=== PATIENT | male | born 1995 | race Caucasian/White ===

== ENCOUNTER 2022-01-18 14:21 | Emergency (ER) | payer SELFPAY ==
[2022-01-18 14:22] VITALS: BP 145/112; PULSE 102; RESP 18; TEMP 36.3; O2SAT 97; BMI 40.6
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
[2022-01-18] MEDS: Ondansetron ODT 4 MG Tablet PO (14:51)
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
--- NOTE | 2022-01-18 15:30 | RAD_ITS ---
STUDY: X-RAY - LEFT KNEE REASON FOR EXAM: Male, 26 years old. Pain TECHNIQUE: 4 view(s) of the knee. COMPARISON: None. FINDINGS: Normal visualized distal femur. Normal visualized proximal tibia and fibula. Normal proximal tibiofibular articulation. Normal medial femorotibial compartment. Normal lateral femorotibial compartment. Normal patellofemoral articulation. Soft tissue swelling RAD/Knee 4 or More Views IMPRESSION: Soft tissue swelling. Electronically Signed: Edilberto Luis MD at 15:49 EDT ,
[2022-01-18 16:12] VITALS: RESP 16
== END 2022-01-18 16:14 | disposition home or self-care (01) ==
PROVIDERS: Emergency Provider Emergency Medicine; PCP Nurse Practitioner; Visit Provider Emergency Medicine
DX: S22.31XA Fracture of one rib, right side, initial encounter for closed fracture (principal); S09.90XA Unspecified injury of head, initial encounter; S80.02XA Contusion of left knee, initial encounter; S80.01XA Contusion of right knee, initial encounter; S16.1XXA Strain of muscle, fascia and tendon at neck level, initial encounter; Z85.830 Personal history of malignant neoplasm of bone; Z87.891 Personal history of nicotine dependence; Z90.89 Acquired absence of other organs; V43.62XA Car passenger injured in collision with other type car in traffic accident, initial encounter
CPT/HCPCS: 70450; 71101; 72125; 73564; 99283

== ENCOUNTER → 2024-05-15 | Outpatient (CLI) | payer OTHER, SELFPAY ==
--- NOTE | 2024-05-15 15:20 | RAD_ITS ---
PROCEDURE: L/S SPINE COMP/W BENDING VIEWS REASON FOR EXAM: Low back pain. TECHNIQUE: Standing AP, oblique, and lateral view(s) Of the lumbar spine with flexion and extension views. COMPARISON: None. FINDINGS: 6 lumbar type vertebral levels are noted. Confirmation of level should be performed prior to any justin gical procedure. There is subtle retrolisthesis of L4 on L5 seen on the extension view. This does normalize on the lateral and flexion views. Vertebral body heights are maintained. No acute fractures or dislocations are identified. There is mild degen erative disc and endplate changes seen at the L3-4 and L5- L6 levels. Facet arthrosis mostly involving the lower lumbar spine. No pars defects are noted. Anatomic alignment of the bilateral SI joints. [id number] amounts of fecal retention. RAD/L/S Spine Comp/w Bending Views IMPRESSION: 1. 6 lumbar-type vertebral levels. Confirmation of level should be performed p rior to any surgical procedure. 2. No acute fractures or dislocations are identified. 3. Subtle retrolisthesis of L4 on L5 seen on the extension view, which normaliz es on the lateral and flexion views. Mild spondylotic changes, as detailed above. Reading [facility]
== END | disposition home or self-care (01) ==
PROVIDERS: PCP Nurse Practitioner; Referring Provider Nurse Practitioner; Visit Provider Nurse Practitioner
DX: M54.42 Lumbago with sciatica, left side (principal)
CPT/HCPCS: 72114

== ENCOUNTER 2024-05-22 15:17 | Outpatient (RCR) | payer OTHER, SELFPAY ==
--- NOTE | 2024-05-22 16:29 | HP.PTEVAL_ITS ---
Patient's Visit Information Visit Information Visit Information: GEOR[place]IA SHAH is a 28 year old M referred to Physical Therapy by HEIKE Morse with a diagnosis of L/S radiculopathy. Date of Evaluation: 05/22/24 Physical Therapist: Gabriel Damon, DPT, OCS, CSCS Visit Plan Frequency: 2x /Week Duration: 4-6 Weeks Plan: 2x/week for 3-6 weeks... IE HEP: PPU, limit sitting , sit with towel roll, avoid fw bending, HO given, ducate on bracing and benefits of tens. treat with progressive forces on Lumbar extension, PA mobs lumbar L345 and thoracic. rollout and stretch B HS to HEP. core strength to I. May use TENS and ice as needed. Subjective Subjective: LBP and needs MRI and needs therapy first. LBP is present for 10+ years on and off. Chiropractor usually helps. This episode is for 3 months adn chiro did not help. Seen pain management and thinks it is a disc. Nothing happened 3 months ago. Pain is L LB and down leg posteriorly, leg> back. Stuck in bed a week ago. Went to doctor and gave lidocaine shot and pain shot and it helped get him funcitonal. Sleep is no problem, rolling in bed and moving in bed can hurt. 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 Lots of riding and sitting and has to rig machine and heavy lifting. Sitting alot 45 min at a time. Sitting irritates. Hobbies: hunting and fishing. 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 Had to cut b ack on all those things recently. Basic ADLs: was not funcitoning mobility alejandro a week ago. . this week is funcitonal. Funcitonal and back to work last but was off mMonday adn Tuesday and Tuesday. HEP: SKC, did not help and made him worse. Pain L LB and pain: Pain Intensity (Out of 10): 5 Pain Intensity Range: 4 and 10 Comment: bedridden a week ago for no reasson. Objective Objective: Walks into PT I, trasnfers I chair and bed, slowly in bed and hesitant but able. + R SLR, + R slump with R LE tightness and pain. LB AROM ext max limited and pain in R LE, very little movement L345 segmentally., flexion is mod limitations., SB is full B without pain. HS max tight L and unable R due to + SLR. reflexes 1/3 patella and achilles B. Sensation LE WNL to gross light touch B LE. strength is 5/5 LE but hard on r quad due to SLR+, no myotomal problems. core strength 4 in abs and extension. repeated PPU seems to increase motion and NE on pain and better standing exxtension. Posture is sacral sitting until cued and flexed Lumbar spine. Balance/Special Test Scores Oswestry Low Back Score: 11 Goals Goal 1:: Pat feel LB and leg pain 90% better and 1/10 at worst in LB only. Goal Time Frame: 4-6 Weeks Goal 2:: I appropriate HEP to limit future problems Goal Time Frame: 4-6 Weeks Goal 3:: Roll in bed without hesitation Goal Time Frame: 4-6 Weeks Goal 4:: back oswestry score 4 or better Goal Time Frame: 4-6 Weeks Rehabilitation Potential Physical Therapy Diagnosis: R leg and LB pain limiting comfortable function and mobility Rehabilitation Potential: Good Anticipated Interventions Patient/Client Instruction: Educate patient on: Condition and Plan of Care For the Purpose of:: To decrease pain, To increase ROM, To improve nutrient delivery to tissue, To improve muscle performance and motor function, To increase tolerance to activity/condition/position and To improve ability of physical actions for home/community/work/leisure Therapeutic Exercise to Include: Strength training, Postural training, Flexibilty training, Passive ROM, Active ROM and Dynamic Lumbar Stabilization For the Purpose of:: To decrease pain, To increase ROM, To improve nutrient delivery to tissue, To improve muscle performance and motor function and To improve gait and locomotor functions Manual Therapy Techniques to Include: Mobilization, Passive ROM and Soft tissue mobilization For the Purpose of:: To decrease pain, To increase ROM, To improve nutrient delivery to tissue, To improve muscle performance and motor function, To increase tolerance to activity/condition/position, To improve ability of physical actions for home/community/work/leisure and To improve gait and locomotor functions Cryotherapy (ice pack, ice massage): Yes For the Purpose of:: To decrease pain and To increase ROM Text: Thank you for the opportunity to evaluate your patient. For Medicare and Medicare HMO plans, please review the plan of care and approve it. It will need to be FAXED BACK to us at [phone] for Medicare purposes. For Medicare only, by signing this I certify the plan of care. Please let me know if there are questions or concerns regarding this plan of care. Physician Signature: Date:
--- NOTE | 2024-07-24 15:18 | HP.PT.NRP ---
Patient Information Patient Information: [place] SHAH was seen in my office for initial evaluation on 05/22/24. The following Plan of Care was established for this patient: POC Established Initial Frequency: 2x /Week Initial Duration: 4-6 Weeks Anticipated Interventions Patient/Client Instruction: Educate patient on: Condition and Plan of Care For the Purpose of:: To decrease pain, To increase ROM, To improve nutrient delivery to tissue, To improve muscle performance and motor function, To increase tolerance to activity/condition/position and To improve ability of physical actions for home/community/work/leisure Therapeutic Exercise to Include: Strength training, Postural training, Flexibilty training, Passive ROM, Active ROM and Dynamic Lumbar Stabilization For the Purpose of:: To decrease pain, To increase ROM, To improve nutrient delivery to tissue, To improve muscle performance and motor function and To improve gait and locomotor functions Manual Therapy Techniques to Include: Mobilization, Passive ROM and Soft tissue mobilization For the Purpose of:: To decrease pain, To increase ROM, To improve nutrient delivery to tissue, To improve muscle performance and motor function, To increase tolerance to activity/condition/position, To improve ability of physical actions for home/community/work/leisure and To improve gait and locomotor functions Cryotherapy (ice pack, ice massage): Yes For the Purpose of:: To decrease pain and To increase ROM Last Seen Last Seen: This patient was last seen in our office 05/22/24. Pertinent comments regarding their Physical therapy will appear below: Pt seen for IE and then cancelled and no showed for remaining POC. At this point, it has been over two months and I will discontinue from my care. At this point I will be discontinuing this patient from physical therapy. I would be happy to see this patient again in the future if found appropriate by the physician. Thank you! Gabriel Damon, DPT, OCS, CSCS Balance/Gait/Functional tests Balance/Special Test Scores Oswestry Low Back Score: 11
== END 2024-05-22 19:00 | disposition home or self-care (01) ==
LOC: PT 15:17
PROVIDERS: PCP Nurse Practitioner; Visit Provider Student in an Organized Health Care Education/Training Program
DX: M54.16 Radiculopathy, lumbar region (principal)
CPT/HCPCS: 97110; 97162

== ENCOUNTER → 2024-06-08 | Outpatient (CLI) | payer OTHER, SELFPAY ==
[2024-06-10 06:38] LABS: Testosterone, Serum 4226 217 ng/dL (264-916)
== END | disposition home or self-care (01) ==
PROVIDERS: PCP Nurse Practitioner; Referring Provider Nurse Practitioner; Visit Provider Nurse Practitioner
DX: R79.89 Other specified abnormal findings of blood chemistry (principal); R53.83 Other fatigue
CPT/HCPCS: 84403; 84443

== ENCOUNTER → 2024-06-08 | Outpatient (CLI) | payer OTHER, SELFPAY ==
--- NOTE | 2024-06-08 07:14 | MRI_ITS ---
PROCEDURE: MRI lumbar spine without IV contrast REASON FOR EXAM: Pain, radiculopathy TECHNIQUE: Multisequence multiplanar MR images of the lumbar spine were obtained without the administration of intravenous contrast. Imaging sequences were performed and best displaced suspected pathology. COMPARISON: 05/15/2024 FINDINGS: Transitional lumbosacral anatomy with lumbarization of S1 and a fully formed disc at S1-S2. Vertebral body heights are within normal limits. Negative for acute fracture or marrow replacement. Alignment is preserved. Conus medullaris is intact and terminates at L1. Mild paraspinal muscle atrophy without mass. L1-2: No focal disc abnormality, spinal stenosis or foraminal narrowing. L2-3: No focal disc abnormality, spinal stenosis or foraminal narrowing. L3-4: Tiny right central disc protrusion. Mild bilateral facet arthrosis. No significant spinal stenosis or foraminal narrowing. L4-5: Broad-based left central disc extrusion measuring 4 x 14 mm (AP and TV dimensions) with 5 mm of caudal extrusion. Mild bilateral facet arthrosis. Mild spinal stenosis and moderate narrowing of the left lateral recess. Mild right and mild/moderate left foraminal narrowing. L5-S1: Large left central disc extrusion measuring 9 x 15 mm (AP and TV dimensions) width 3 mm of cranial and 4 mm of caudal migration. Severe spinal stenosis including severe narrowing of the left lateral recess. Mild right and moderate left foraminal narrowing. Mild bilateral facet arthrosis. MRI/Spine Lumbar (Routine) IMPRESSION: 1. Transitional lumbosacral anatomy which requires careful correlation with pino tebral levels if surgery is considered. Lumbarization of S1 with a fully formed disc at S1-S2. 2. Large left central disc extrusion at L5-S1 resulting in severe spinal stenos is and severe left lateral recess stenosis. 3. Small left central disc extrusion at L4-5 resulting in mild spinal stenosis and narrowing of the left lateral recess. 4. Ooin-vp-ornqkfly left foraminal narrowing from L4 through S1. Reading Location: [facility]
== END | disposition home or self-care (01) ==
LOC: MRI 07:05
PROVIDERS: PCP Nurse Practitioner; Referring Provider Student in an Organized Health Care Education/Training Program; Visit Provider Student in an Organized Health Care Education/Training Program
DX: M54.16 Radiculopathy, lumbar region (principal)
CPT/HCPCS: 72148

== ENCOUNTER → 2024-06-29 | Outpatient (CLI) | payer OTHER, SELFPAY ==
--- NOTE | 2024-06-29 18:58 | CT_ITS ---
PROCEDURE: SPINE LUMBAR WITHOUT CONTRAST REASON FOR EXAM: PAIN TECHNIQUE: Lumbar spine CT without contrast. COMPARISON: None. FINDINGS: Vertebrae: Normal lumbar vertebral body heights. No evidence of fracture. No spondylolysis. Alignment: No spondylolisthesis. L1-2: Unremarkable. L2-3: Unremarkable. L3-4: Unremarkable. L4-5: Unremarkable. L5-S1: Unremarkable. Sacrum: Visualized upper sacrum and SI joints are unremarkable. Visualized retroperitoneal structures are unremarkable. CT/Spine Lumbar without Contrast IMPRESSION: No acute fracture or traumatic malalignment. One or more dose reduction techniques were used (e.g., Automated exposure contr ol, adjustment of the mA and/or kV according to patient size, use of iterative reconstruction technique). Reading Location: [facility]
== END | disposition home or self-care (01) ==
PROVIDERS: PCP Nurse Practitioner; Referring Provider Student in an Organized Health Care Education/Training Program; Visit Provider Student in an Organized Health Care Education/Training Program
DX: M51.26 Other intervertebral disc displacement, lumbar region (principal)
CPT/HCPCS: 72131

== ENCOUNTER 2024-07-09 09:44 | Day surgery (SDC) | payer OTHER, SELFPAY ==
--- NOTE | 2024-07-05 08:42 | EKG12_ITS ---
Test Reason : PREOP Blood Pressure : */* mmHG Vent. Rate : 65 BPM Atrial Rate : 65 BPM P-R Int : 154 ms QRS Dur : 108 ms QT Int : 406 ms P-R-T Axes : 14 39 25 degrees QTcB Int : 422 ms Normal sinus rhythm Normal ECG Confirmed by MARCE VILLA, NINA ([id number]), marketing editor RAFAEL DAVIDSON ([id number]) on 07/06/2024 5:48:57 AM Referred By: Geraldo Robles Confirmed By: NINA ZHENG MD
[2024-07-05 09:31] LABS: Absolute Lymphocyte Count 1.41 X10^3/uL (0.83-4.51); Absolute Neutrophil Count 5.1 X10^3/uL (2.0-7.7); Basophil# 0.04 X10^3/uL; Basophil% 0.5 % (0-1); Eosinophils% 1.4 % (0-5); Hematocrit 44.5 % (40-54); Hemoglobin 15.3 g/dL (13.0-16.5); Lymphocyte # 1.41 X10^3/ul (0.83-4.51); Lymphocyte % 19.3 % (19-41); Mean Corp Hgb Conc 34.4 g/dL (32-36); Mean Corpuscular Hgb 31.8 pg (27.0-32.0); Mean Corpuscular Volume 92.5 fL (80-94); Mean Platelet Vol. 9.9 fl (6.2-12.0); Monocyte# 0.56 X10^3/uL; Monocyte% 7.7 % (0-10); NRBC Flagged by Analyzer 0 % (0-5); Neutrophil # 5.14 X10^3/uL (2.7-7.7); Neutrophil % 70.6 % (47-70); Platelet Count 240 K/mm3 (150-450); RBC Distribution Width CV 12.2 % (11.6-14.6); RBC Distribution Width SD 41.9 fl (35.1-43.9); Red Blood Count 4.81 M/mm3 (4.6-6.2); White Blood Count 7.3 K/mm3 (4.4-11.0)
[2024-07-05 10:26] LABS: Magnesium 2.1 mg/dL (1.5-2.2)
[2024-07-05 10:32] LABS: Hepatitis B Surface Antibody Nonreactive; Hepatitis C Antibody Nonreactive (Nonreactive)
[2024-07-05 10:44] LABS: Anion Gap 13 (5-15); BUN 15 mg/dL (4-19); BUN/Creat Ratio 17.9 RATIO (10-20); Calcium,Total 9.3 mg/dL (7.6-11.0); Carbon Dioxide 25.4 mmol/L (21.0-32.0); Chloride 102 mmol/L (98-108); Creatinine, Serum 0.82 mg/dL (0.70-1.20); EST Glomerular Filtration Rate 122 (>60); Glucose 106 mg/dL (70-99); HIV Nonreactive (Nonreactive); Potassium 4.1 mmol/L (3.3-5.1); Sodium Level 140 mmol/L (133-145)
[2024-07-06 05:07] LABS: Hepatitis A AB, Total Negative (Negative)
[2024-07-09] VITALS (10 sets, daily range): BP systolic 119–154; BP diastolic 41–99; PULSE 77–106; RESP 16–20; TEMP 36.2–36.4; O2SAT 94–100; BMI 50.3
[2024-07-09] MEDS: Acetaminophen 500 MG Tablet 1000 MG PO (10:22)
[2024-07-09 10:50] LABS: Bedside Glucose 113 mg/dL (74-106)
[2024-07-09] MEDS: 0.9% Normal Saline (1000mL) 1,000 ML 15 ML IV (10:51)
[2024-07-09] MEDS: Magnesium 1 GM over 15 mins IV (10:51)
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
--- NOTE | 2024-07-09 11:16 | PRE.ANES_ITS ---
ASA Classification* ASA Classification ASA Classification: 3 Assessment & Plan Anesthesia* Anesthesia Assessment Anesthesia Assessment: Discussed sedation and/or anesthesia options, risks, benefits, and alternatives with patient/parents/legal guardian/POA. Questions invited. The patient/parents/legal guardian/POA seems to understand and agrees to proceed with anesthesia plan. Reviewed the physical assessment, medical history, allergy history and patient home medications list prior to surgery/procedure/anesthetic and documented any changes. Performed airway and anesthesia risk assessments. Anesthesia Type Anesthesia Type: General History Source History Obtained from:: Patient and Chart Anesthesia Focused Assessment* Temperature: 97.2 F Pulse Rate: 77 Blood Pressure: 154/70 Respiratory Rate: 16 Pulse Ox: 100 Oxygen Delivery Method: Room Air Airway Assessment Mouth opens: >3 cm Mallampati Score: I Teeth Condition: Intact Neck Range of motion (ROM): Full ROM Focused Labs Anesthesia Preop lab: CBC WBC 7.3 K/mm3 (4.4-11.0) 07/05/24 09:04 07/05/24 RBC 4.81 M/mm3 (4.6-6.2) 07/05/24 09:04 07/05/24 Hgb 15.3 g/dL (13.0-16.5) 07/05/24 09:04 07/05/24 Hct 44.5 % (40-54) 07/05/24 09:04 07/05/24 Plt Count 240 K/mm3 (150-450) 07/05/24 09:04 07/05/24 CHEMISTRY Potassium 4.1 mmol/L (3.3-5.1) 07/05/24 09:04 07/05/24 Sodium 140 mmol/L (133-145) 07/05/24 09:04 07/05/24 Magnesium 2.1 mg/dL (1.5-2.2) 07/05/24 09:02 07/05/24 BUN 15 mg/dL (4-19) 07/05/24 09:04 07/05/24 Creatinine 0.82 mg/dL (0.70-1.20) 07/05/24 09:04 07/05/24 Glucose 106 mg/dL (70-99) H 07/05/24 09:04 07/05/24 POC Glucose 113 mg/dL (74-106) H 07/09/24 10:20 07/09/24 TSH 1.250 uIU/mL (0.358-3.740) 06/08/24 23:59 /05/12 COAG Pre-Assessment Diagnosis/Proposed Procedure Planned Operative Procedure(s): LEFT LUMBAR DISCECTOMY L5-S1 Anesthesia History Anesthesia History - central supply nurse: Anesthesia History - central supply nurse Hx Hospitalization No 06/29/24 08:27 Any Problems With Anesthesia No 06/29/24 08:27 Cholinesterase deficiency No 06/29/24 08:27 You/Your Family Experience No 06/29/24 08:27 fever (hyperthermia) with Relationship Recent Exposure to Contagious No 07/09/24 10:14 Disease Does patient have nerve No 06/29/24 08:27 stimulator Patient instructed to have device shut off --Does patient have Pacemaker No 07/09/24 10:16 or ICD? When Was Last Pacemaker Check QUESTION #4 FULL TEXT: You/Your Family Experience fever (hyperthermia) with Anesthesia Last Oral Intake Last Oral intake: Last Oral Intake NPO since 08:00 07/09/24 10:16 Meds taken in AM with sips of No 07/09/24 10:16 water? Meds patient instructed to take am of surgery Any additional information?: Yes NPO since: 06:30 (Patient had hashbrowns 6:30 AM. And ensure preop at 8 AM.) Meds taken in AM with sips of water?: Yes PONV PONV - central supply nurse: PONV - central supply nurse Female No 06/29/24 08:27 HX of Motion Sickness No 06/29/24 08:27 HX of N/V After Surgery No 06/29/24 08:27 Non-Smoker No 06/29/24 08:27 Duration of Surgery greater Yes 06/29/24 08:27 than 60 minutes Number of Risk Factors 1 06/29/24 08:27 PONV Score Low Risk 06/29/24 08:27 Height & Weight Height & Weight: Anesthesia: Height & Weight Height 6 ft 07/09/24 10:16 Weight: 168.555 kg 07/09/24 10:16 Body Mass Index (BMI) 50.3 07/09/24 10:16 Respiratory Assessment Respiratory Assessment - central supply nurse: Respiratory Tract Infection Hx - central supply nurse Hx Respiratory Tract Infection No 06/29/24 08:27 STOP Sleep Apnea STOP Sleep Apnea - central supply nurse: STOP Sleep Apnea - central supply nurse Hx Hypertension Yes: STARTED ON METOPROLOL 06/29/24 08:27 WITHIN LAST WEEK Hx Sleep Apnea No 06/29/24 08:27 CPAP BIPAP Do you snore loudly (louder No 06/29/24 08:27 than talking or can be heard Do you often feel tired/ No 06/29/24 08:27 fatigued/ sleepy during daytime? Has anyone observed you stop No 06/29/24 08:27 breathing during sleep? STOP Results Negative 06/29/24 08:27 QUESTION #5 FULL TEXT : Do you snore loudly (louder than talking or can be heard through closed doors)? 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 Specify any problems Hx of Preganancy in last 3 N/A 06/29/24 08:27 Months Nurse Filling Out Transfusion DSCHRIBER 06/29/24 08:27 & Questions: Date: 06/29/24 06/29/24 08:27 Time: 08:30 06/29/24 08:27 Patient unable to answer at this time (ie. confused, unrespo /Reproduction History /Reproductive History - central supply nurse: /Reproductive Hx- central supply nurse Hx Now No 06/29/24 08:27 Gestational Age (in weeks): EDC: Hx Hx Para Hx Section SAB No 06/29/24 08:27 Active Medications Active Medications: Current Medications Generic Name Dose Route Start Last Admin Trade Name Sigrid PRN Reason Stop Dose Admin Acetaminophen 1,000 mg 07/09/24 12:00 07/09/24 10:22 Acetaminophen 500 Mg Tablet PO 07/09/24 12:01 1,000 mg X1 ONE Administration Cefazolin Sodium 2 gm/ N/A 20 mls @ 400 mls/hr 07/09/24 12:00 IV 07/09/24 12:02 PREOP ONE Tranexamic Acid 1,000 mg/ 110 mls @ 440 mls/hr 07/09/24 12:00 Sodium Chloride IV 07/09/24 12:14 X1 ONE Tranexamic Acid 1,000 mg/ 110 mls @ 440 mls/hr 07/09/24 13:00 Sodium Chloride IV 07/09/24 13:14 X1 ONE Magnesium Sulfate 1 gm/ 102 mls @ 408 mls/hr 07/09/24 12:00 07/09/24 10:51 Dextrose IV 07/09/24 12:14 408 mls/hr X1 ONE Administration Sodium Chloride 1,000 mls @ 15 mls/hr 07/09/24 10:00 07/09/24 10:51 IV 15 mls/hr .Q48H MOE Administration Insulin Human Lispro 1 - 6 unit 07/09/24 12:00 Insulin Lispro 100 Unit/Ml Insuln.Pen SC 07/09/24 18:00 Q4H PRN PRN BG>/= 180, SEE PROTOCOL Protocol PFSH Medical History Wears contact lenses Alcohol use History of steroid therapy Back pain Smoker Shortness of breath on exertion Leg cramps History of pain when walking Hypertension Herniated lumbar intervertebral disc Primary bone cancer Home Medications ?Medication ?Instructions ?Recorded ?Last Taken ?Type tramadol 50 mg tablet 50 mg PO TID PRN pain 10 day s #30 05/14/24 Unknown Rx tabs gabapentin 300 mg capsule 900 mg (3 x 300 mg) PO TID 3 0 days 06/15/24 07/08/24 Rx #270 caps metoprolol succinate 50 mg 50 mg PO QHS #90 tabs 07/0207/08/24 Rx tablet,extended release 24 hr hydrocodone 10 mg-acetaminophen 1 tab PO Q6H PRN pain 07/09/24 07/08/24 History 325 mg tablet Allergy/AdvReac Type Severity Reaction Status Date / Time No Known Allergies Allergy Verified 07/09/24 10:10 Surgical History Hx of wisdom tooth extraction Social History Smoking Status: Current some day smoker tobacco type: cigarettes and smokeless tobacco Review of Systems (Anesthesia) ROS Narrative System reviewed and no additional complaints, except as documented.
[2024-07-09] MEDS: Cefazolin 2 GM in Syringe 10 ML IV (14:35)
[2024-07-09] MEDS: TRANEXAMIC ACID 1,000 MG in 0.9% Normal Saline (100mL Bag) 100 ML 440 MG IV ×2 (14:40→16:49)
--- NOTE | 2024-07-09 14:40 | RAD_ITS ---
EXAM: XR Lumbosacral Spine, 2 or 3 Views CLINICAL INDICATION: LEFT LUMBAR ENDOSCOPIC DISECTOMY L5-S1 TECHNIQUE: Frontal and lateral views of the lumbar spine and sacrum. COMPARISON: No relevant prior studies available. FINDINGS: VERTEBRAE: Unremarkable. No acute fracture. Normal alignment. SACRUM/COCCYX: Unremarkable as visualized. No acute fracture. DISC SPACES: No acute findings. No significant narrowing. SOFT TISSUES: Unremarkable. OTHER FINDINGS: Fluoroscopic guided images was used intraoperatively. Total radiation dose 73.26 mGy. Total fluoroscopy time 17.3 seconds. Total total images. RAD/Lumbar Spine 2 or 3 Views IMPRESSION: Intraoperative fluoroscopic guidance was used intraoperatively. Please refer t o the operative note for further details. Reading Location: [facility]
[2024-07-09] MEDS: Bupiv/Epi 0.25% 30 ML Vial (15:14)
[2024-07-09] MEDS: Triamcinolone Acetonide 40 MG/ML Vial (16:48)
--- NOTE | 2024-07-09 17:26 | PCM.POST.ANE ---
Anesthesia: Postop Eval I Current Vital Signs Temperature: 97.4 F Pulse Rate: 104 Blood Pressure: 119/65 Respiratory Rate: 20 Pulse Ox: 100 Oxygen Delivery Method: Venturi Mask Oxygen Flow Rate (L/min): 6 Assessment Airway patent: Yes Spontaneous unlabored respirations: Yes Mental status: Awake nausea: No Vomiting: No Anesthesia Complication: No Fluid Hydration Crystalloid volume administer (ml): 1,500 Total IV fluid infused: 1,500 Progress Note Anesthesia document: Postop Eval 1 completed: Yes
--- NOTE | 2024-07-09 17:57 | PCM.OPRPT ---
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 Subwarehouse Supervisor: Sally Glynn Tasks completed by assistant track coach: Closing, Removing tissue, Hemostasis: Electrocautery and Retracting Type of Anesthesia: General RN Documented Start/Stop Times: Operation Date: 07/09/24 12:00 Case Time Into Pre-Op 07/09/24 09:53 Out of Pre-Op 07/09/24 14:24 Anesthesia Start 07/09/24 14:28 Into Room 07/09/24 14:28 Procedure Start 07/09/24 15:10 Procedure End 07/09/24 17:01 Out of Room 07/09/24 17:16 Anesthesia End 07/09/24 17:17 Into Recovery 07/09/24 17:20 Procedure Start Time: 15:10 Procedure Stop Time: 17:01 Select all DRAINS/GRAFTS/IMPLANTS that apply: None Estimated Blood Loss: 5 cc Specimen collected: No Description of surgery: Preoperative diagnosis: L5-S1 left lateral recess stenosis, left paracentral disc herniation Postoperative diagnosis: Same Name of procedure: L5-S1 left sided laminotomy, partial facetectomy, discectomy, decompression of left S1 nerve root CPT 24973 Attending Surgeon: Dr. Geraldo Robles Estimated blood loss: 5 mL Anesthesia: General Indications: Patient is a 28-year-old gentleman who presented with low back pain and severe left lower extremity radiation with difficulty walking distances. MRI revealed L5-S1 Left lateral recess stenosis with paracentral disc herniation. All options of treatment were discussed which included continued nonoperative treatment measures like rest physical therapy, injections. After prolonged nonsurgical treatment, patient requested surgical intervention for decompression. All risks and benefits associated with the procedure were explained to the patient. The risks include but are not limited to infection, bleeding, injury to nerves and vessels, persistent paresthesia, incidental dural tear, recurrent disc herniation, spinal instability and need for fusion or other procedures in future, persistent pain, persistent weakness and numbness, etc. Procedure: The patient was identified in the preoperative holding suite using Unique patient identifiers. Skin was marked, consent was reviewed, and all questions were answered. The patient was then brought back to the operative room. A surgical timeout was performed to make sure correct procedure was being done on the correct patient and all operative room staff were on the same page. General endotracheal anesthesia was then given to the patient. Neuromonitoring leads were applied. The patient was then turned prone onto a Jay table over a Erwin frame. The back was prepped and draped in usual fashion. Preoperative antibiotic was given. A final timeout was then again done just before starting the procedure. An incision was then carried out in the midline using the C-arm to locate the level. The fascia was also incised just left to the spinous process. A blunt dissector was then inserted and the inferior edge of the lamina and a C-arm lateral view was repeated. The level was confirmed to be the L5-S1 interspace. C-arm was then kept in the lateral position for the rest of the surgery. Over the blunt dissector of minimally invasive tubular cannula was inserted just superficial to the lamina and left facet joint. Under direct light based visualization, remainder of the muscle tissue was removed with the help of pituitaries and the inferior edge of the lamina and medial aspect of the L5-S1 facet were exposed. A kateryna was then utilized to make a laminotomy As well as performed a partial medial facetectomy. Once the bone was thinned out a Kerrison rongeur was utilized to complete the laminotomy. The ligamentum flavum was then removed with the help of straight and upgoing scissor punches. Ligamentum flavum in the lateral recess was then removed with upgoing scissor punches. The dura and traversing nerve root were then identified with the help of a [place] #4. The [place] 4 dissector was then utilized to carefully remove any adhesions of the left S1 traversing nerve root from the underlying disc and was carefully retracted medially. [place] was then used to bluntly open the PLL. Cannula was rotated in the left S1 nerve root was carefully retracted medially further. Disc fragments were then teased out with the help of a nerve hook . Disc fragments were then removed piecemeal and came out in at least 1 large piece measuring 2 cm. The remainder of the fragments came out piecemeal. The nerve hook were then used to probe inferiorly and superiorly and medially to tease out more disc fragments. Further loose disc fragments from the disc space were also removed with help of pituitary. Ballpoint probe was then utilized to make sure all fragments from underneath the dural sac and nerve root were teased out and removed. Once adequate decompression of the dural sac as well as left S1 traversing nerve root was obtained by removal of all loose disc fragments including the ones that were extruded, Kenalog was then sprinkled over the traversing nerve root. And closure was done in layers, 2-0 Vicryl for subcutaneous tissue, and 3-0 nylon l for the skin. 2 x 2 gauze was then placed over the wound covered with Tegaderm. The patient was then turned supine onto a hospital bed. The patient was extubated and taken to PACU in stable condition. The patient tolerated the procedure well and no complications occurred. Estimated blood loss for the entire surgery was 5 mL. No instrumentation was utilized in this case. No dural tear occurred in this case. Neuromonitoring was utilized during the surgery and all potentials remained at baseline. I was present for the entirety of the case and performed the surgery myself. Machine Tool Mechanic Sally Glynn PA-C. My physician assistant guest services manager was a vital part of this case. They were important in appropriate retraction during the case, and protection of soft tissues during the procedure. Their intimate knowledge of the case and my steps aided in safe and expedient completion of the procedure as well as appropriate position of the patient during the surgery. They were also vital in assisting with closure under my direct supervision. Surgical Findings: See operative note Complications Complications: No
--- NOTE | 2024-07-09 18:11 | POSTOPAN2_ITS ---
Anesthesia Postop Eval I Sum Postop Eval Completion status Anesthesia document: Postop Eval 1 completed: Yes Anesthesia Postop Eval I Summary Anesthesia Postop Eval I Summary: Anesthesia Postop Eval I: Assessment Summary Airway patent Yes 07/09/24 17:27 [email or web address] Spontaneous unlabored Yes 07/09/24 17:27 [email or web address] respirations Mental status Awake 07/09/24 17:27 [email or web address] nausea No 07/09/24 17:27 [email or web address] Vomiting No 07/09/24 17:27 [email or web address] Anesthesia Postop Eval I: Fluid Summary Crystalloid volume administer 1,500 07/09/24 17:27 [email or web address] (ml) Colloids volume administered ( ml) Blood Product volume administered (ml) Total IV fluid infused 1,500 07/09/24 17:27 [email or web address] Anesthesia Postop Eval I: Summary Notes Anesthesia Complication No 07/09/24 17:27 [email or web address] Anesthesia Complication Comment: Post-operative progress note Anesthesia: Postop Eval II Evaluation Mental status: Awake and Calm Pain Level: 0 nausea: No Vomiting: No Complications Anesthesia Complication: No
--- NOTE | 2024-07-09 18:11 | PCM.POSTANE2 ---
Anesthesia Postop Eval I Sum Postop Eval Completion status Anesthesia document: Postop Eval 1 completed: Yes Anesthesia Postop Eval I Summary Anesthesia Postop Eval I Summary: Anesthesia Postop Eval I: Assessment Summary Airway patent Yes 07/09/24 17:27 [email or web address] Spontaneous unlabored Yes 07/09/24 17:27 [email or web address] respirations Mental status Awake 07/09/24 17:27 [email or web address] nausea No 07/09/24 17:27 [email or web address] Vomiting No 07/09/24 17:27 [email or web address] Anesthesia Postop Eval I: Fluid Summary Crystalloid volume administer 1,500 07/09/24 17:27 [email or web address] (ml) Colloids volume administered ( ml) Blood Product volume administered (ml) Total IV fluid infused 1,500 07/09/24 17:27 [email or web address] Anesthesia Postop Eval I: Summary Notes Anesthesia Complication No 07/09/24 17:27 [email or web address] Anesthesia Complication Comment: Post-operative progress note Anesthesia: Postop Eval II Evaluation Mental status: Awake and Calm Pain Level: 0 nausea: No Vomiting: No Complications Anesthesia Complication: No
[2024-07-09] MEDS: HYDROcodone Bitartrate/Apap 5/325 Tablet PO (18:30)
== END 2024-07-09 18:57 | disposition home or self-care (01) ==
LOC: SDC 09:45 → AC 09:48
PROVIDERS: Anesthesiology; PCP Nurse Practitioner; Referring Provider Orthopaedic Surgery Orthopaedic Surgery of the Spine; Visit Provider Orthopaedic Surgery Orthopaedic Surgery of the Spine
PROC: 0SB24ZZ Excision of Lumbar Vertebral Disc, Percutaneous Endoscopic Approach (ICD-10-PCS; CPT 62287; principal; 2024-07-09 11:45)
DX: M51.16 Intervertebral disc disorders with radiculopathy, lumbar region (principal); R26.2 Difficulty in walking, not elsewhere classified; M48.07 Spinal stenosis, lumbosacral region; I10 Essential (primary) hypertension; F17.210 Nicotine dependence, cigarettes, uncomplicated; F17.220 Nicotine dependence, chewing tobacco, uncomplicated; Z79.1 Long term (current) use of non-steroidal anti-inflammatories (NSAID); Z79.899 Other long term (current) drug therapy
CPT/HCPCS: 63047; 00630; 36415; 72100; 76000; 80048; 82962; 83735; 85025; 86703; 86706; 86708; 86803; 86850; 86900; 86901; 87077; 87081; 93005; J2405; J3475